=== PATIENT | female | born 1985 | race Caucasian/White ===

== ENCOUNTER 2021-07-30 16:41 | Emergency (ER) | payer BC ==
[~2021-07-30] VITALS: Ht 162.6 cm; Wt 59.0 kg
[2021-07-30 16:41] VITALS: BP 107/57
--- NOTE | 2021-07-30 16:41 | NUR ---
BIBA TO BED 09
--- NOTE | 2021-07-30 16:42 | NUR ---
Dr. Thao is evaluating pt at bedside
--- NOTE | 2021-07-30 17:27 | NUR ---
BLOOD WORK COLLECTED AND SENT TO LAB
[2021-07-30 17:29] LABS: BASOPHILS % (AUTO) 0.4 % (0.0-2.0); EOSINOPHILS % (AUTO) 0.2 % (0.0-4.0); HEMOGLOBIN 12.9 g/dL (12.0-16.0); LYMPHOCYTES # (AUTO) 0.6 K/uL (2.5-16.5); LYMPHOCYTES % (AUTO) 8.9 % (20.5-51.1); MEAN CORPUSCULAR HEMOGLOBIN 30 pg (27-31); MEAN CORPUSCULAR HGB CONC 34 g/dL (33-37); MEAN CORPUSCULAR VOLUME 87.2 fL (80-94); MONOCYTES # (AUTO) 0.2 K/uL (0.8-1.0); MONOCYTES % (AUTO) 3.2 % (1.7-9.3); NEUTROPHILS # (AUTO) 5.8 K/uL (1.8-7.7); NEUTROPHILS % (AUTO) 87.3 % (42.2-75.2); PLATELET COUNT (AUTO) 378 K/uL (140-450); RED BLOOD CELL COUNT(AUTO) 4.36 MIL/uL (4.20-5.40); RED CELL DISTRIBUTION WIDTH 13.7 % (11.6-13.7); WHITE BLOOD COUNT (AUTO) 6.6 K/uL (4.8-10.8)
--- NOTE | 2021-07-30 17:30 | NUR ---
36 y/o F BIBA from home for witnessed seizure lasting 1 minute. Per EMS, patient fell from ground level and hit her R cheek. EMS states pt presented postical A&Ox3 on scene. No oral trauma noted. Reports R cheek pain, head and neck pain 10/10 sharp/constant, non-radiating pain. Pt reports nausea + vomiting prior to arrival. Denies blood thinners. Seizure precautions in place. SpO2 100% on room air PMH: seizures Meds: keppra (unknown dose) NKDA
[2021-07-30 17:55] LABS: ALBUMIN 4.1 g/dL (3.4-5.0); ANION GAP 11.9 (8-16); ASPARTATE AMINOTRANSFERASE 16 U/L (15-37); CARBON DIOXIDE 23.9 mmol/L (21-32); CHLORIDE 106 mmol/L (98-107); CREATININE 0.7 mg/dL (0.6-1.3); GFR ARICAN-AMERICAN 122 mL/min (>90); GLUCOSE 103 mg/dL (74-106); POTASSIUM 3.8 mmol/L (3.5-5.1); SODIUM SERUM 138 mmol/L (136-145); TOTAL BILIRUBIN 0.3 mg/dL (0.0-1.0); UREA NITROGEN, BLOOD 7 mg/dL (7-18); VALPROIC ACID < 3 ug/ml (50-100)
[2021-07-30] MEDS ORDERED: ACETAMINOPHEN 325 MG TAB PO ONE (17:55)
[2021-07-30 17:56] LABS: PHENYTOIN (DILANTIN) < 0.5 ug/ml (10.0-20.0)
[2021-07-30 18:21] VITALS: BP 107/57
--- NOTE | 2021-07-30 18:21 | NUR ---
Patient does not wish to proceed with medical care recommended by DR VICENTE. Patient given information related to possible complications, up to and including , which could occur as a result of leaving hospital at this time. Patient verbalizes understanding of risks involved leaving against medical advice. Patient has signed AMA form.
== END 2021-07-30 18:20 | disposition left against medical advice (07) ==
LOC: MED 16:41
DX: R56.9 Unspecified convulsions (principal); R11.2 Nausea with vomiting, unspecified; G40.909 Epilepsy, unspecified, not intractable, without status epilepticus
CPT/HCPCS: 36415; 80053; 80185; 84702; 85025; 99283; G0482